=== PATIENT | male | born 1950 | race Hispanic/Latino ===

== ENCOUNTER 2021-05-10 11:27 | Emergency (ER) | payer MEDICARE ==
[~2021-05-10] VITALS: Ht 167.6 cm; Wt 68.0 kg
[~2021-05-10 11:27] MED LIST: METOPROLOL SUCC50 MG PO; NITROSTAT SL; SIMVASTATIN20 MG PO
[2021-05-10] MEDS ORDERED: CEFEPIME 2 GM in SODIUM CHLORIDE 0.9% 100 ML IV NR (11:45)
[2021-05-10] MEDS ORDERED: Vancomycin IV 1 GM in SODIUM CHLORIDE 0.9% 250ML 250 ML IV ONE (11:45)
[2021-05-10] MEDS ORDERED: SODIUM CHLORIDE 0.9% 1000ML 2,040 ML IV SCH (12:00)
[2021-05-10] MEDS ORDERED: ACETAMINOPHEN 325 MG TAB PO PRN (12:00)
[2021-05-10 12:09] LABS: BASOPHILS % 0.4 % (0.0-1.0); HEMATOCRIT 40.2 % (38.2-49.6); LYMPHOCYTES # (AUTO) 0.6 (1.0-3.2); LYMPHOCYTES % 13.2 % (18.0-39.1); MEAN CORPUSCULAR HEMOGLOBIN 33.5 pg (28-32); MEAN CORPUSCULAR HGB CONC 34.8 g/dL (31-35); MEAN CORPUSCULAR VOLUME 96.2 fL (81-99); MONOCYTES # (AUTO) 0.1 (0.2-0.8); MONOCYTES % 3.1 % (4.4-11.3); NEUTROPHILS # (AUTO) 3.7 (2.1-6.9); NEUTROPHILS % 82.9 % (38.7-80.0); PLATELET COUNT 121 x10e3/uL (140-360); RED BLOOD COUNT 4.18 x10e6/uL (4.3-5.7); RED CELL DISTRIBUTION WIDTH 12.7 % (11.7-14.4)
[2021-05-10 12:12] LABS: CLARITY,URINE SL CLOUDY (CLEAR); COLOR,URINE YELLOW (YELLOW); KETONES,URINE TRACE (NEGATIVE); LEUKOCYTE ESTERASE ,URINE NEGATIVE (NEGATIVE); NITRITE,URINE NEGATIVE (NEGATIVE); PROTEIN,URINE DIPSTICK 2+ (NEGATIVE)
[2021-05-10 12:25] LABS: BACTERIA,URINE FEW /HPF; MUCUS,URINE FEW (RARE)
[2021-05-10 12:42] LABS: ALBUMIN 3.2 g/dL (3.5-5.0); ALBUMIN/GLOBULIN RATIO 0.8 (0.8-2.0); ANION GAP 15.3 mmol/L (8-16); CALCIUM 8.3 mg/dL (8.4-10.2); CREATININE, SERUM 0.83 mg/dL (0.72-1.25); POTASSIUM 3.3 mmol/L (3.5-5.1)
[2021-05-10 12:48] LABS: CREATINE KINASE MB 0.9 ng/mL (0-5.0)
== END 2021-05-10 17:42 | disposition other institution (70) ==
LOC: ER 11:29
DX: R50.9 Fever, unspecified (principal); B20 Human immunodeficiency virus [HIV] disease; R51.9 Headache, unspecified; I10 Essential (primary) hypertension; I45.6 Pre-excitation syndrome; Z20.822 Contact with and (suspected) exposure to COVID-19
CPT/HCPCS: 36415; 70450; 71045; 80053; 81001; 82550; 82553; 83605; 84484; 85025; 86361; 87040; 87086; 87400; 93005; 99284; J0692; J3370; J7030; J7050 ×2; U0002

== ENCOUNTER 2025-03-25 20:05 | Emergency (ER) | payer MEDICARE ==
[~2025-03-25] VITALS: Ht 167.6 cm; Wt 73.5 kg
[~2025-03-25 20:05] MED LIST changes: +ALLOPURINOL100 MG PO; +ATORVASTATIN CA10 MG PO; +DOCUSATE SODIU100 MG PO; +GENVOYA TABLET1 EACH PO; +MICARDIS20 MG PO
[2025-03-25] MEDS: ACETAMINOPHEN 325 MG TAB PO ONE (23:08)
[2025-03-25] MEDS: KETOROLAC TROMETHAMINE 30 MG/ML VIAL IV STA (23:08)
[2025-03-25] MEDS: CYCLOBENZAPRINE HCL 10 MG TAB PO ONE (23:09)
[2025-03-26 01:13] VITALS: PULSE 51; RESP 16; TEMP 98.1
[2025-03-26] MEDS: TRAMADOL HCL 50 MG TAB PO ONE (01:31)
[2025-03-26] MEDS ORDERED: KETOROLAC TROME10 MG PO (01:46)
[2025-03-26] MEDS ORDERED: ULTRAM 50MG50 MG PO (01:46)
[2025-03-26] MEDS ORDERED: METHOCARBAMOL500 MG PEG (01:46)
[2025-03-26 01:52] VITALS: BP 144/69; PULSE 51; RESP 16; TEMP 98.1; O2SAT 97
== END 2025-03-26 01:55 | disposition home or self-care (01) ==
LOC: FSED 21:32
DX: M48.061 Spinal stenosis, lumbar region without neurogenic claudication (principal); K80.20 Calculus of gallbladder without cholecystitis without obstruction
CPT/HCPCS: 72131; 80048; 80076; 81003; 84484; 85025; 96374; 99284; J1885

== ENCOUNTER 2025-03-26 18:42 | Emergency (ER) | payer MEDICARE ==
[~2025-03-26 18:42] MED LIST changes: +KETOROLAC TROME10 MG PO; +METHOCARBAMOL500 MG PEG; +ULTRAM 50MG50 MG PO
[2025-03-26 19:03] VITALS: PULSE 65; RESP 16; TEMP 99.3; O2SAT 99
== END 2025-03-26 21:05 | disposition home or self-care (01) ==
LOC: FSED 18:53
DX: G89.18 Other acute postprocedural pain (principal); R10.31 Right lower quadrant pain; I10 Essential (primary) hypertension; B20 Human immunodeficiency virus [HIV] disease; I45.6 Pre-excitation syndrome
CPT/HCPCS: 74176; 99283